=== PATIENT | female | born 1995 | race Caucasian/White ===

== ENCOUNTER 2017-02-08 09:58 | Emergency (ER) | payer MEDICAID ==
[~2017-02-08] VITALS: Ht 165.1 cm; Wt 125.0 kg
[~2017-02-08 09:58] MED LIST: ALLERGY10 M1 PO; AMOXICILLIN500 MG PO; AMOXICILLIN875 MG OR; AUGMENTIN875TAB PO; AURALGAN15 ML OT; BACTRIM DS1 TAB OR; BACTRIM DS1 TAB PO; BACTROBAN2 % EX; BENADRYL 50MG C50 MG OR; DARVOCET N-100100 - OR; DARVOCET-N 100100 MG OR; DIFLUCAN150 MG PO; ERRIN0.35 MG OR; ERRIN0.35 MG PO; FAMVIR500 MG OR; FIORICET PO; FLONASE NASAL50 MCG; FLUARIX QUADRIV1 INJ IM; GABAPENTIN300 MG PO; IBUPROFEN600 MG PO; KEFLEX500 MG PO; KENALOG15 GM/TUBE EX; LORTAB 10-325 M1 TAB PO; MEDDOSEPAK PO; MOTRIN800 MG OR; NAPROSYN375 MG PO; NAPROSYN500 MG OR; NAPROSYN500 MG PO; NAPROXEN500 MG PO; NO HOME MEDICATION; OBTREX DHA PO; OMNICEF300 MG PO; ONDANSETRON4 MG PO; PAROXETINE10 MG PO; PREDNISONE1 MG OR; PREDNISONE10 MG PO; PREDNISONE20 MG PO; PRENATA8; PRENATAL1 TA1 PO; PRILOSEC20 MG PO; PROAIR HFA IN; PROMETHAZINE12.5 MG OR; PROTONIX40 MG PO; PYRIDIUM200 MG PO; SINGULAIR10 MG OR; SMZ-TMP DS1 TAB PO; TAM75CAP OR; TETRACYCLINE250 MG OR; TOPAMAX50 MG PO; TRAMADOL HCL50 MG PO; TRAZODONE50 MG PO; TUMS500 MG PO; TYLENOL # 31 TAB OR; ULTRAM50 MG OR; VISTARIL25 MG OR; ZANTAC SYRUP15 MG/ML OR; ZOFRAN ODT4 MG PO; ZOVIRAX5 % EX; ZYRTEC10 MG PO
[2017-02-08 10:37] LABS: HEMATOCRIT 41.9 % (37.0-47.0); HEMOGLOBIN 14.1 g/dl (12.0-16.0); IMMATURE GRANULOCYTES 0.4 % (0.0-1.0); MEAN CELL VOLUME 87.8 fL CALC (80.0-100.0); MEAN CORPUSCULAR HGB 29.6 pG CALC (26.0-32.0); MEAN CORPUSCULAR HGB CONC 33.7 g/L CALC (32.0-36.0); NEUT# 4.97 thou/uL (2.00-7.15); RED BLOOD COUNT 4.77 mill/uL (4.20-5.60); RED CELL DISTRI WIDTH 14.8 % (11.5-15.5)
[2017-02-08 10:56] LABS: URINE BILIRUBIN - DIPSTICK NEGATIVE (NEGATIVE); URINE BLOOD DIPSTICK LARGE (NEGATIVE); URINE CLARITY SLIGHT CLOUDY; URINE COLOR YELLOW; URINE GLUCOSE - DIPSTICK NEGATIVE (NEGATIVE); URINE KETONE NEGATIVE (NEGATIVE); URINE LEUK ESTERASE TRACE (NEGATIVE); URINE NITRITE - DIPSTICK NEGATIVE (Negative); URINE PH 7.5 (4.5-8.0); URINE PROTEIN - DIPSTICK NEGATIVE (NEG-TRACE); URINE SPECIFIC GRAVITY 1.015; URINE UROBILINOGEN - DIPSTICK 0.2 E.U./dL (0.2)
[2017-02-08 10:56] LABS: ALBUMIN 4.4 g/dL (3.2-5.0); ALKALINE PHOSPHATASE 52 u/l (38-126); ANION GAP 15 (6-22 (CALC)); BILIRUBIN, TOTAL 0.4 mg/dL (0.0-1.4); BUN 6 mg/dL (7-17); BUN/CREATININE RATIO 9 (12-20 (CALC)); CALCIUM 9.8 mg/dL (8.4-10.2); CARBON DIOXIDE 24 mmol/l (22-30); CHLORIDE 104 mmol/l (95-108); CREATININE 0.7 mg/dL (0.5-1.0); GFR > 60 ML/MIN (>=60 (CALC)); GFR FOR AFR.AMER. > 60 ML/MIN (>=60 (CALC)); GLUCOSE 89 mg/dL (65-105); POTASSIUM 4.2 mmol/l (3.5-5.1); SGOT/AST 23 u/l (14-36); SGPT/ALT 37 u/l (9-52); SODIUM 139 mmol/l (137-146); TOTAL PROTEIN 7.5 g/dL (6.3-8.2)
[2017-02-08 11:09] LABS: URINE WBC 0-2 WBC/hpf (0-5)
[2017-02-08 11:10] LABS: URINE BACTERIA FEW hpf; URINE SQUAMOUS EPITHELIAL CELL MODERATE EPI/hpf (0-FEW)
[2017-02-08 11:12] LABS: BETA-HCG, QUANT(RESULT NUMBER) 1512 mIU/mL
[2017-02-08 12:54] VITALS: BP 82/51
[2017-02-09] MEDS ORDERED: RHOGAM ULTR1500 UNIT IN (22:36)
[2017-02-09] MEDS ORDERED: VISTARIL25 MG PO (22:36)
[2017-02-09] MEDS ORDERED: NORCO1 TA1 PO (22:36)
== END 2017-02-08 12:58 | disposition home or self-care (01) | DRG 779 ==
LOC: ED 09:58
PROVIDERS: Emergency Medicine
DX: O02.1 Missed abortion (principal)

== ENCOUNTER 2017-02-09 18:00 | Emergency (ER) | payer MEDICAID ==
[~2017-02-09] VITALS: Ht 165.1 cm; Wt 79.5 kg
[2017-02-09 21:21] LABS: HEMATOCRIT 42.7 % (37.0-47.0); HEMOGLOBIN 14.3 g/dl (12.0-16.0); IMMATURE GRANULOCYTES 0.4 % (0.0-1.0); MEAN CORPUSCULAR HGB 29.5 pG CALC (26.0-32.0); MEAN CORPUSCULAR HGB CONC 33.5 g/L CALC (32.0-36.0); NEUT# 6.09 thou/uL (2.00-7.15); RED BLOOD COUNT 4.85 mill/uL (4.20-5.60)
[2017-02-09] MEDS ORDERED: NORCO1 TA1 PO (22:36)
[2017-02-09] MEDS ORDERED: RHOGAM ULTR1500 UNIT IN (22:36)
[2017-02-09] MEDS ORDERED: VISTARIL25 MG PO (22:36)
[2017-02-10 01:00] VITALS: BP 86/46
== END 2017-02-09 23:50 | disposition home or self-care (01) | DRG 770 ==
LOC: ED 18:00
PROVIDERS: Emergency Medicine
PROC: 10D17ZZ Extraction of Products of Conception, Retained, Via Natural or Artificial Opening (ICD-10-PCS; principal; 2017-02-09)
DX: O03.4 Incomplete spontaneous abortion without complication (principal)

== ENCOUNTER 2017-04-14 15:57 | Emergency (ER) | payer MEDICAID ==
[~2017-04-14] VITALS: Ht 165.1 cm; Wt 135.0 kg
[~2017-04-14 15:57] MED LIST changes: +NORCO1 TA1 PO; +RHOGAM ULTR1500 UNIT IN; +VISTARIL25 MG PO
[2017-04-14 17:21] LABS: HEMOGLOBIN 13.8 g/dl (12.0-16.0); IMMATURE GRANULOCYTES 0.4 % (0.0-1.0); MEAN CORPUSCULAR HGB 29.3 pG CALC (26.0-32.0); MEAN CORPUSCULAR HGB CONC 33.7 g/L CALC (32.0-36.0); NEUT# 7.08 thou/uL (2.00-7.15); RED BLOOD COUNT 4.71 mill/uL (4.20-5.60); RED CELL DISTRI WIDTH 13.9 % (11.5-15.5)
[2017-04-14 17:22] LABS: URINE BLOOD DIPSTICK SMALL (NEGATIVE); URINE GLUCOSE - DIPSTICK 100 mg/dL (NEGATIVE); URINE KETONE TRACE mg/dL (NEGATIVE); URINE LEUK ESTERASE NEGATIVE (NEGATIVE); URINE PROTEIN - DIPSTICK 100 mg/dL (NEG-TRACE); URINE SPECIFIC GRAVITY >=1.030
[2017-04-14 17:28] LABS: URINE BILIRUBIN - DIPSTICK LARGE (NEGATIVE); URINE COLOR RED; URINE NITRITE - DIPSTICK POSITIVE (Negative)
[2017-04-14 17:29] LABS: URINE BACTERIA MODERATE hpf; URINE CLARITY CLOUDY; URINE SQUAMOUS EPITHELIAL CELL FEW EPI/hpf (0-FEW)
[2017-04-14 18:00] LABS: ALBUMIN 4.4 g/dL (3.2-5.0); ALKALINE PHOSPHATASE 189 u/l (38-126); ANION GAP 16 (6-22 (CALC)); BILIRUBIN, TOTAL 5.9 mg/dL (0.0-1.4); BUN 9 mg/dL (7-17); BUN/CREATININE RATIO 12 (12-20 (CALC)); CALCIUM 9.2 mg/dL (8.4-10.2); CARBON DIOXIDE 23 mmol/l (22-30); CHLORIDE 106 mmol/l (95-108); CREATININE 0.8 mg/dL (0.5-1.0); GFR > 60 ML/MIN (>=60 (CALC)); GFR FOR AFR.AMER. > 60 ML/MIN (>=60 (CALC)); GLUCOSE 105 mg/dL (65-105); POTASSIUM 4.4 mmol/l (3.5-5.1); SGOT/AST 398 u/l (14-36); SGPT/ALT 502 u/l (9-52); SODIUM 141 mmol/l (137-146); TOTAL PROTEIN 7.6 g/dL (6.3-8.2)
[2017-04-14 19:32] LABS: AMYLASE 3311 u/l (30-110)
[2017-04-14 19:47] LABS: LIPASE 22625 u/l (23-300)
[2017-04-15 01:45] VITALS: BP 102/51
== END 2017-04-15 01:45 | DRG 444 ==
LOC: ED 15:57
PROVIDERS: Emergency Medicine
DX: K80.10 Calculus of gallbladder with chronic cholecystitis without obstruction (principal); K85.90 Acute pancreatitis without necrosis or infection, unspecified; R10.13 Epigastric pain; R10.11 Right upper quadrant pain
CPT/HCPCS: S0164

== ENCOUNTER 2017-07-22 13:04 | Emergency (ER) | payer MEDICAID ==
[~2017-07-22] VITALS: Ht 165.1 cm; Wt 125.0 kg
[2017-07-22 13:49] LABS: URINE BILIRUBIN - DIPSTICK NEGATIVE (NEGATIVE); URINE BLOOD DIPSTICK NEGATIVE (NEGATIVE); URINE CLARITY CLEAR; URINE COLOR YELLOW; URINE GLUCOSE - DIPSTICK NEGATIVE (NEGATIVE); URINE KETONE NEGATIVE (NEGATIVE); URINE LEUK ESTERASE NEGATIVE (NEGATIVE); URINE NITRITE - DIPSTICK NEGATIVE (Negative); URINE PROTEIN - DIPSTICK TRACE mg/dL (NEG-TRACE); URINE SPECIFIC GRAVITY 1.025; URINE UROBILINOGEN - DIPSTICK 0.2 E.U./dL (0.2)
[2017-07-22 13:57] LABS: HEMATOCRIT 40.6 % (37.0-47.0); HEMOGLOBIN 13.2 g/dl (12.0-16.0); IMMATURE GRANULOCYTES 0.8 % (0.0-1.0); MEAN CELL VOLUME 87.7 fL CALC (80.0-100.0); MEAN CORPUSCULAR HGB 28.5 pG CALC (26.0-32.0); MEAN CORPUSCULAR HGB CONC 32.5 g/L CALC (32.0-36.0); NEUT# 4.26 thou/uL (2.00-7.15); RED BLOOD COUNT 4.63 mill/uL (4.20-5.60); RED CELL DISTRI WIDTH 14.9 % (11.5-15.5)
[2017-07-22 14:01] LABS: ALBUMIN 4.5 g/dL (3.2-5.0); ALKALINE PHOSPHATASE 57 u/l (38-126); AMYLASE 70 u/l (30-110); ANION GAP 16 (6-22 (CALC)); BILIRUBIN, TOTAL 0.5 mg/dL (0.0-1.4); BUN 10 mg/dL (7-17); BUN/CREATININE RATIO 12 (12-20 (CALC)); CALCIUM 9.4 mg/dL (8.4-10.2); CARBON DIOXIDE 27 mmol/l (22-30); CHLORIDE 105 mmol/l (95-108); CREATININE 0.9 mg/dL (0.5-1.0); GFR > 60 ML/MIN (>=60 (CALC)); GFR FOR AFR.AMER. > 60 ML/MIN (>=60 (CALC)); GLUCOSE 81 mg/dL (65-105); LIPASE 55 u/l (23-300); POTASSIUM 4.4 mmol/l (3.5-5.1); SGOT/AST 17 u/l (14-36); SGPT/ALT 31 u/l (9-52); SODIUM 142 mmol/l (137-146); TOTAL PROTEIN 8.2 g/dL (6.3-8.2)
[2017-07-22] MEDS ORDERED: ULTRAM50 M1 PO (15:51)
[2017-07-22 16:26] VITALS: BP 100/56
== END 2017-07-22 16:00 | disposition home or self-care (01) | DRG 392 ==
LOC: ED 13:04
PROVIDERS: Emergency Medicine
DX: R10.11 Right upper quadrant pain (principal)
CPT/HCPCS: Q9967

== ENCOUNTER 2018-10-26 17:40 | Emergency (ER) | payer SELFPAY ==
[~2018-10-26] VITALS: Ht 165.1 cm; Wt 133.2 kg
[~2018-10-26 17:40] MED LIST changes: +ULTRAM50 M1 PO
[2018-10-26 19:04] VITALS: BP 122/73
== END 2018-10-26 19:04 | disposition home or self-care (01) | DRG 153 ==
LOC: ED 17:40
DX: J06.9 Acute upper respiratory infection, unspecified (principal)

== ENCOUNTER 2019-03-30 13:02 | Emergency (ER) | payer OTHER ==
[~2019-03-30] VITALS: Ht 165.1 cm; Wt 127.0 kg
[2019-03-30] MEDS ORDERED: MOTRIN400 MG PO (13:57)
[2019-03-30 14:00] VITALS: BP 138/88
== END 2019-03-30 14:00 | disposition home or self-care (01) ==
LOC: ED 13:02
DX: S93.402A Sprain of unspecified ligament of left ankle, initial encounter (principal); W10.9XXA Fall (on) (from) unspecified stairs and steps, initial encounter; Y92.009 Unspecified place in unspecified non-institutional (private) residence as the place of occurrence of the external cause

== ENCOUNTER 2019-09-07 12:47 | Emergency (ER) | payer OTHER ==
[~2019-09-07] VITALS: Ht 165.1 cm; Wt 109.0 kg
[~2019-09-07 12:47] MED LIST changes: +MOTRIN400 MG PO
[2019-09-07] MEDS ORDERED: DICLOFENAC50 MG PO (14:09)
[2019-09-07] MEDS ORDERED: FLEXERIL PO (14:09)
[2019-09-07 14:15] VITALS: BP 108/66
== END 2019-09-07 14:15 | disposition home or self-care (01) ==
LOC: ED 12:47
DX: M54.5 Low back pain (principal); G89.29 Other chronic pain

== ENCOUNTER 2019-11-12 | Emergency (ER) | payer OTHER ==
[~2019-11-12] MED LIST changes: +DICLOFENAC50 MG PO; +FLEXERIL PO
[2019-11-12 16:05] LABS: HEMATOCRIT 43.1 % (37.0-47.0); HEMOGLOBIN 13.1 g/dl (12.0-16.0); IMMATURE GRANULOCYTES 0.2 % (0.0-5.0); MEAN CELL VOLUME 80.3 fL CALC (80.0-100.0); MEAN CORPUSCULAR HGB 24.4 pG CALC (26.0-32.0); MEAN CORPUSCULAR HGB CONC 30.4 g/L CALC (32.0-36.0); NEUT# 3.46 thou/uL (2.00-7.15); RED BLOOD COUNT 5.37 mill/uL (4.20-5.60); RED CELL DISTRI WIDTH 16.6 % (11.5-15.5)
[2019-11-12 16:25] LABS: URINE BLOOD DIPSTICK LARGE (NEGATIVE); URINE GLUCOSE - DIPSTICK NEGATIVE (NEGATIVE); URINE KETONE NEGATIVE (NEGATIVE); URINE LEUK ESTERASE NEGATIVE (NEGATIVE); URINE NITRITE - DIPSTICK NEGATIVE (Negative); URINE PH 5.5 (4.5-8.0); URINE PROTEIN - DIPSTICK 30 mg/dL (NEG-TRACE); URINE SPECIFIC GRAVITY >=1.030
[2019-11-12 16:26] LABS: ALBUMIN 4.8 g/dL (3.2-5.0); ALKALINE PHOSPHATASE 75 u/l (38-126); ANION GAP 16 (6-22 (CALC)); BILIRUBIN, TOTAL 0.5 mg/dL (0.0-1.4); BUN 8 mg/dL (7-17); BUN/CREATININE RATIO 10 (12-20 (CALC)); CARBON DIOXIDE 22 mmol/l (22-30); CHLORIDE 104 mmol/l (95-108); CREATININE 0.8 mg/dL (0.5-1.0); GFR > 60 ML/MIN (>=60 (CALC)); GFR FOR AFR.AMER. > 60 ML/MIN (>=60 (CALC)); LIPASE 67 u/l (23-300); POTASSIUM 3.8 mmol/l (3.5-5.1); SGOT/AST 24 u/l (14-36); SODIUM 139 mmol/l (137-146); TOTAL PROTEIN 8.5 g/dL (6.3-8.2); URINE BILIRUBIN - DIPSTICK NEGATIVE (NEGATIVE); URINE COLOR DK. YELLOW
[2019-11-12 16:38] LABS: URINE SQUAMOUS EPITHELIAL CELL MODERATE EPI/hpf (0-FEW)
[2019-11-12] MEDS ORDERED: ZOFRAN4 MG/TAB PO (19:06)
[2019-11-12] MEDS ORDERED: DICYCLOMINE10 MG PO (19:06)
== END 2019-11-12 19:35 | disposition home or self-care (01) ==
PROVIDERS: Family Medicine
DX: K52.9 Noninfective gastroenteritis and colitis, unspecified (principal); F17.210 Nicotine dependence, cigarettes, uncomplicated
CPT/HCPCS: Q9967

== ENCOUNTER 2020-03-15 18:51 | Emergency (ER) | payer OTHER ==
[~2020-03-15 18:51] MED LIST changes: +DICYCLOMINE10 MG PO; +ZOFRAN4 MG/TAB PO
[2020-03-15] MEDS ORDERED: KEFLEX500 M1 PO ×2 (20:52)
[2020-03-15 21:15] VITALS: BP 152/70
== END 2020-03-15 21:15 | disposition home or self-care (01) ==
LOC: ED 18:51
DX: L03.032 Cellulitis of left toe (principal); F17.200 Nicotine dependence, unspecified, uncomplicated

== ENCOUNTER 2020-09-01 08:14 | Emergency (ER) | payer OTHER ==
[~2020-09-01] VITALS: Ht 165.1 cm; Wt 120.0 kg
[~2020-09-01 08:14] MED LIST changes: +KEFLEX500 M1 PO
[2020-09-01 09:03] LABS: HEMATOCRIT 42.3 % (37.0-47.0); HEMOGLOBIN 13.1 g/dl (12.0-16.0); IMMATURE GRANULOCYTES 0.3 % (0.0-5.0); MEAN CORPUSCULAR HGB 25.4 pG CALC (26.0-32.0); NEUT# 2.57 thou/uL (2.00-7.15); RED BLOOD COUNT 5.16 mill/uL (4.20-5.60); RED CELL DISTRI WIDTH 16.2 % (11.5-15.5)
[2020-09-01 09:17] LABS: ANION GAP 12 (6-22 (CALC)); BUN 7 mg/dL (7-17); BUN/CREATININE RATIO 8 (12-20 (CALC)); CARBON DIOXIDE 25 mmol/l (22-30); CHLORIDE 108 mmol/l (95-108); CREATININE 0.8 mg/dL (0.5-1.0); GFR > 60 ML/MIN (>=60 (CALC)); GFR FOR AFR.AMER. > 60 ML/MIN (>=60 (CALC)); POTASSIUM 3.6 mmol/l (3.5-5.1); SODIUM 140 mmol/l (137-146)
[2020-09-01] MEDS ORDERED: HYDROCO/APAP1 TA9 PO (10:45)
[2020-09-01 10:54] VITALS: BP 109/67
== END 2020-09-01 10:54 | disposition home or self-care (01) ==
LOC: ED 08:14
PROVIDERS: Family Medicine
DX: M79.601 Pain in right arm (principal); D69.2 Other nonthrombocytopenic purpura; I77.6 Arteritis, unspecified; F17.200 Nicotine dependence, unspecified, uncomplicated

== ENCOUNTER 2020-09-04 08:04 | Emergency (ER) | payer OTHER ==
[~2020-09-04] VITALS: Ht 165.1 cm; Wt 120.0 kg
[~2020-09-04 08:04] MED LIST changes: +HYDROCO/APAP1 TA9 PO
[2020-09-04] MEDS ORDERED: LORTAB 1010 MG PO (08:23)
[2020-09-04] MEDS ORDERED: FAMCICLOVIR500 MG PO (08:23)
[2020-09-04] MEDS ORDERED: ZOVIRAX52 TOP (08:23)
[2020-09-04 08:40] VITALS: BP 105/58
== END 2020-09-04 08:40 | disposition home or self-care (01) ==
LOC: ED 08:04
DX: B02.9 Zoster without complications (principal); F17.200 Nicotine dependence, unspecified, uncomplicated

== ENCOUNTER 2021-05-04 21:20 | Emergency (ER) | payer OTHER ==
[~2021-05-04] VITALS: Ht 165.1 cm; Wt 122.3 kg
[~2021-05-04 21:20] MED LIST changes: +FAMCICLOVIR500 MG PO; +LORTAB 1010 MG PO; +ZOVIRAX52 TOP
[2021-05-04 22:23] LABS: HEMATOCRIT 43.2 % (37.0-47.0); HEMOGLOBIN 13.9 g/dl (12.0-16.0); IMMATURE GRANULOCYTES 0.4 % (0.0-5.0); MEAN CELL VOLUME 86.1 fL CALC (80.0-100.0); MEAN CORPUSCULAR HGB 27.7 pG CALC (26.0-32.0); MEAN CORPUSCULAR HGB CONC 32.2 g/dL CAL (32.0-36.0); NEUT# 3.57 thou/uL (2.00-7.15); RED BLOOD COUNT 5.02 mill/uL (4.20-5.60)
[2021-05-04 22:24] LABS: URINE BILIRUBIN - DIPSTICK NEGATIVE (NEGATIVE); URINE BLOOD DIPSTICK NEGATIVE (NEGATIVE); URINE COLOR YELLOW; URINE GLUCOSE - DIPSTICK NEGATIVE (NEGATIVE); URINE KETONE NEGATIVE (NEGATIVE); URINE LEUK ESTERASE NEGATIVE (NEGATIVE); URINE PH 6.5 (4.5-8.0); URINE PROTEIN - DIPSTICK NEGATIVE (NEG-TRACE); URINE SPECIFIC GRAVITY >=1.030; URINE UROBILINOGEN - DIPSTICK 0.2 E.U./dL (0.2)
[2021-05-04 22:25] LABS: URINE NITRITE - DIPSTICK NEGATIVE (Negative)
[2021-05-04 22:40] LABS: ALBUMIN 4.3 g/dL (3.2-5.0); ALKALINE PHOSPHATASE 57 u/l (38-126); AMYLASE 80 u/l (30-110); ANION GAP 12 (6-22 (CALC)); BILIRUBIN, TOTAL 0.3 mg/dL (0.0-1.4); BUN 11 mg/dL (7-17); BUN/CREATININE RATIO 13 (12-20 (CALC)); CARBON DIOXIDE 23 mmol/l (22-30); CHLORIDE 106 mmol/l (95-108); CREATININE 0.8 mg/dL (0.5-1.0); GFR > 60 ML/MIN (>=60 (CALC)); GFR FOR AFR.AMER. > 60 ML/MIN (>=60 (CALC)); LIPASE 122 u/l (23-300); SGOT/AST 21 u/l (14-36); SODIUM 137 mmol/l (137-146); TOTAL PROTEIN 7.7 g/dL (6.3-8.2)
[2021-05-04] MEDS ORDERED: GABAPENTIN100 MG PO (22:50)
[2021-05-04] MEDS ORDERED: LORTAB 1010 MG PO (23:50)
[2021-05-05 00:15] VITALS: BP 109/53
== END 2021-05-05 00:02 | disposition home or self-care (01) ==
LOC: ED 21:20
PROVIDERS: Emergency Medicine
DX: R10.30 Lower abdominal pain, unspecified (principal); N80.9 Endometriosis, unspecified; F17.200 Nicotine dependence, unspecified, uncomplicated
CPT/HCPCS: Q9967

== ENCOUNTER 2021-06-25 23:02 | Emergency (ER) | payer OTHER ==
[~2021-06-25] VITALS: Ht 165.1 cm; Wt 120.5 kg
[~2021-06-25 23:02] MED LIST changes: +GABAPENTIN100 MG PO
[2021-06-25 23:45] LABS: HEMOGLOBIN 14.3 g/dl (12.0-16.0); IMMATURE GRANULOCYTES 0.2 % (0.0-5.0); MEAN CELL VOLUME 87.1 fL CALC (80.0-100.0); MEAN CORPUSCULAR HGB 28.3 pG CALC (26.0-32.0); MEAN CORPUSCULAR HGB CONC 32.5 g/dL CAL (32.0-36.0); NEUT# 5.57 thou/uL (2.00-7.15); RED BLOOD COUNT 5.05 mill/uL (4.20-5.60)
[2021-06-26 00:16] LABS: ALBUMIN 4.4 g/dL (3.2-5.0); ALKALINE PHOSPHATASE 52 u/l (38-126); ANION GAP 13 (6-22 (CALC)); BILIRUBIN, TOTAL 0.3 mg/dL (0.0-1.4); BUN 9 mg/dL (7-17); BUN/CREATININE RATIO 11 (12-20 (CALC)); CARBON DIOXIDE 23 mmol/l (22-30); CHLORIDE 108 mmol/l (95-108); CREATININE 0.8 mg/dL (0.5-1.0); GFR > 60 ML/MIN (>=60 (CALC)); GFR FOR AFR.AMER. > 60 ML/MIN (>=60 (CALC)); POTASSIUM 3.6 mmol/l (3.5-5.1); SGOT/AST 20 u/l (14-36); SODIUM 140 mmol/l (137-146); TOTAL PROTEIN 7.6 g/dL (6.3-8.2)
[2021-06-26 01:36] LABS: URINE BILIRUBIN - DIPSTICK NEGATIVE (NEGATIVE); URINE BLOOD DIPSTICK NEGATIVE (NEGATIVE); URINE COLOR YELLOW; URINE GLUCOSE - DIPSTICK NEGATIVE (NEGATIVE); URINE KETONE NEGATIVE (NEGATIVE); URINE LEUK ESTERASE TRACE (NEGATIVE); URINE PROTEIN - DIPSTICK NEGATIVE (NEG-TRACE); URINE SPECIFIC GRAVITY 1.015; URINE UROBILINOGEN - DIPSTICK 0.2 E.U./dL (0.2)
[2021-06-26 01:38] LABS: URINE NITRITE - DIPSTICK NEGATIVE (Negative)
[2021-06-26] MEDS ORDERED: GABAPENTIN300 M2 PO (01:56)
[2021-06-26] MEDS ORDERED: LORTAB 5/3255 MG PO (01:56)
[2021-06-26] MEDS ORDERED: AMOX/K CLAV875 M1 PO (01:56)
[2021-06-26 02:00] VITALS: BP 110/59
== END 2021-06-26 02:05 | disposition home or self-care (01) ==
LOC: ED 23:02
PROVIDERS: Family Medicine
DX: G50.0 Trigeminal neuralgia (principal); J32.9 Chronic sinusitis, unspecified; K03.81 Cracked tooth; F17.200 Nicotine dependence, unspecified, uncomplicated

== ENCOUNTER 2021-07-08 08:31 | Emergency (ER) | payer OTHER ==
[~2021-07-08] VITALS: Ht 165.1 cm; Wt 120.0 kg
[~2021-07-08 08:31] MED LIST changes: +AMOX/K CLAV875 M1 PO; +GABAPENTIN300 M2 PO; +LORTAB 5/3255 MG PO
[2021-07-08] MEDS ORDERED: TRILEPTAL300 MG PO (08:57)
[2021-07-08] MEDS ORDERED: TEGRETOL PO (10:34)
[2021-07-08] MEDS ORDERED: HYDROCO/APAP1 TA9 PO (10:34)
[2021-07-08 11:09] VITALS: BP 142/75
== END 2021-07-08 11:17 | disposition home or self-care (01) ==
LOC: ED 08:31
DX: G50.0 Trigeminal neuralgia (principal); E66.9 Obesity, unspecified; F17.210 Nicotine dependence, cigarettes, uncomplicated

== ENCOUNTER 2022-02-18 15:18 | Emergency (ER) | payer OTHER ==
[2022-02-18] VITALS (25 sets, daily range): BP systolic 74–127; BP diastolic 42–82
[~2022-02-18] VITALS: Ht 165.1 cm; Wt 117.7 kg
[~2022-02-18 15:18] MED LIST changes: +KEPPRA500 M2 PO; +TEGRETOL PO; +TRILEPTAL300 MG PO
[2022-02-18 15:44] LABS: HEMATOCRIT 48.7 % (37.0-47.0); HEMOGLOBIN 16.2 g/dl (12.0-16.0); IMMATURE GRANULOCYTES 0.3 % (0.0-5.0); MEAN CELL VOLUME 89.2 fL CALC (80.0-100.0); MEAN CORPUSCULAR HGB 29.7 pG CALC (26.0-32.0); MEAN CORPUSCULAR HGB CONC 33.3 g/dL CAL (32.0-36.0); NEUT# 9.01 thou/uL (2.00-7.15); RED BLOOD COUNT 5.46 mill/uL (4.20-5.60)
[2022-02-18 16:02] LABS: ALBUMIN 4.4 g/dL (3.2-5.0); ALKALINE PHOSPHATASE 91 u/l (38-126); ANION GAP 11 (6-22 (CALC)); BILIRUBIN, TOTAL 0.9 mg/dL (0.0-1.4); BUN 10 mg/dL (7-17); BUN/CREATININE RATIO 14 (12-20 (CALC)); CARBON DIOXIDE 21 mmol/l (22-30); CHLORIDE 107 mmol/l (95-108); CREATININE 0.8 mg/dL (0.5-1.0); GFR > 60 ML/MIN (>=60 (CALC)); GFR FOR AFR.AMER. > 60 ML/MIN (>=60 (CALC)); SGOT/AST 67 u/l (14-36); SODIUM 135 mmol/l (137-146); TOTAL PROTEIN 7.8 g/dL (6.3-8.2)
[2022-02-18] MEDS ORDERED: PROMETHAZINE HY25 M1 PO (19:43)
== END 2022-02-18 20:08 | disposition home or self-care (01) ==
LOC: ED 15:18
PROVIDERS: Family Medicine
DX: R07.9 Chest pain, unspecified (principal); R11.0 Nausea; F17.210 Nicotine dependence, cigarettes, uncomplicated

== ENCOUNTER 2022-04-06 09:48 | Emergency (ER) | payer OTHER ==
[~2022-04-06] VITALS: Ht 165.1 cm; Wt 119.7 kg
[2022-04-06] VITALS (15 sets, daily range): BP systolic 80–114; BP diastolic 37–83
[~2022-04-06 09:48] MED LIST changes: +PROMETHAZINE HY25 M1 PO
[2022-04-06 10:36] LABS: HEMATOCRIT 51.2 % (37.0-47.0); HEMOGLOBIN 16.7 g/dl (12.0-16.0); IMMATURE GRANULOCYTES 0.1 % (0.0-5.0); MEAN CELL VOLUME 91.6 fL CALC (80.0-100.0); MEAN CORPUSCULAR HGB 29.9 pG CALC (26.0-32.0); MEAN CORPUSCULAR HGB CONC 32.6 g/dL CAL (32.0-36.0); NEUT# 3.52 thou/uL (2.00-7.15); RED BLOOD COUNT 5.59 mill/uL (4.20-5.60); RED CELL DISTRI WIDTH 14.2 % (11.5-15.5)
[2022-04-06 11:00] LABS: ALBUMIN 4.8 g/dL (3.2-5.0); ALKALINE PHOSPHATASE 72 u/l (38-126); BUN 8 mg/dL (7-17); BUN/CREATININE RATIO 9 (12-20 (CALC)); CHLORIDE 105 mmol/l (95-108); CREATININE 0.9 mg/dL (0.5-1.0); GFR FOR AFR.AMER. > 60 ML/MIN (>=60 (CALC)); GFR OTHER RACES > 60 ML/MIN (>=60 (CALC)); POTASSIUM 3.9 mmol/l (3.5-5.1); SGOT/AST 26 u/l (14-36); SODIUM 141 mmol/l (137-146); TOTAL PROTEIN 8.7 g/dL (6.3-8.2)
[2022-04-06 11:03] LABS: ANION GAP 13 (6-22 (CALC)); BILIRUBIN, TOTAL 0.4 mg/dL (0.0-1.4); CARBON DIOXIDE 27 mmol/l (22-30)
[2022-04-06] MEDS ORDERED: ZITHROMAX250 MG PO (13:06)
[2022-04-06] MEDS ORDERED: PAXLOVID PO (13:06)
== END 2022-04-06 13:46 | disposition home or self-care (01) ==
LOC: ED 09:48
PROVIDERS: Emergency Medicine
DX: U07.1 COVID-19 (principal); R05.9 Cough, unspecified; R09.81 Nasal congestion; G50.0 Trigeminal neuralgia; F17.210 Nicotine dependence, cigarettes, uncomplicated
CPT/HCPCS: Q9967

== ENCOUNTER 2022-06-07 11:46 | Emergency (ER) | payer OTHER ==
[2022-06-07] VITALS (21 sets, daily range): BP systolic 86–115; BP diastolic 53–81
[~2022-06-07] VITALS: Ht 165.1 cm; Wt 86.0 kg
[~2022-06-07 11:46] MED LIST changes: +PAXLOVID PO; +ZITHROMAX250 MG PO
[2022-06-07 13:28] LABS: URINE BILIRUBIN - DIPSTICK NEGATIVE (NEGATIVE); URINE BLOOD DIPSTICK NEGATIVE (NEGATIVE); URINE COLOR YELLOW; URINE GLUCOSE - DIPSTICK NEGATIVE (NEGATIVE); URINE KETONE NEGATIVE (NEGATIVE); URINE LEUK ESTERASE NEGATIVE (NEGATIVE); URINE PROTEIN - DIPSTICK NEGATIVE (NEG-TRACE); URINE SPECIFIC GRAVITY 1.015; URINE UROBILINOGEN - DIPSTICK 0.2 E.U./dL (0.2)
[2022-06-07 13:29] LABS: HEMATOCRIT 46.9 % (37.0-47.0); HEMOGLOBIN 15.9 g/dl (12.0-16.0); IMMATURE GRANULOCYTES 0.2 % (0.0-5.0); MEAN CELL VOLUME 87.8 fL CALC (80.0-100.0); MEAN CORPUSCULAR HGB 29.8 pG CALC (26.0-32.0); MEAN CORPUSCULAR HGB CONC 33.9 g/dL CAL (32.0-36.0); NEUT# 4.37 thou/uL (2.00-7.15); RED BLOOD COUNT 5.34 mill/uL (4.20-5.60); RED CELL DISTRI WIDTH 13.5 % (11.5-15.5)
[2022-06-07 13:29] LABS: URINE NITRITE - DIPSTICK NEGATIVE (Negative)
[2022-06-07 13:51] LABS: ALBUMIN 4.4 g/dL (3.2-5.0); ALKALINE PHOSPHATASE 58 u/l (38-126); ANION GAP 13 (6-22 (CALC)); BILIRUBIN, TOTAL 0.4 mg/dL (0.0-1.4); BUN 5 mg/dL (7-17); BUN/CREATININE RATIO 6 (12-20 (CALC)); CARBON DIOXIDE 24 mmol/l (22-30); CHLORIDE 106 mmol/l (95-108); CREATININE 0.9 mg/dL (0.5-1.0); GFR FOR AFR.AMER. > 60 ML/MIN (>=60 (CALC)); GFR OTHER RACES > 60 ML/MIN (>=60 (CALC)); LIPASE 46 u/l (23-300); POTASSIUM 4.3 mmol/l (3.5-5.1); SGOT/AST 19 u/l (14-36); SODIUM 139 mmol/l (137-146); TOTAL PROTEIN 7.4 g/dL (6.3-8.2)
== END 2022-06-07 18:53 | disposition home or self-care (01) ==
LOC: ED 11:46
PROVIDERS: Family Medicine
DX: E66.9 Obesity, unspecified (principal); F17.210 Nicotine dependence, cigarettes, uncomplicated; N83.292 Other ovarian cyst, left side; N83.291 Other ovarian cyst, right side
CPT/HCPCS: Q9967

== ENCOUNTER 2022-06-23 10:27 | Emergency (ER) | payer OTHER ==
[~2022-06-23] VITALS: Ht 165.1 cm; Wt 114.6 kg
[2022-06-23 11:11] VITALS: BP 116/76
[2022-06-23 11:27] LABS: HEMATOCRIT 48.3 % (37.0-47.0); IMMATURE GRANULOCYTES 0.2 % (0.0-5.0); MEAN CELL VOLUME 89.1 fL CALC (80.0-100.0); MEAN CORPUSCULAR HGB 29.5 pG CALC (26.0-32.0); MEAN CORPUSCULAR HGB CONC 33.1 g/dL CAL (32.0-36.0); NEUT# 4.01 thou/uL (2.00-7.15); RED BLOOD COUNT 5.42 mill/uL (4.20-5.60); RED CELL DISTRI WIDTH 13.5 % (11.5-15.5)
[2022-06-23 11:31] VITALS: BP 95/69
[2022-06-23 11:31] LABS: URINE BILIRUBIN - DIPSTICK NEGATIVE (NEGATIVE); URINE COLOR YELLOW; URINE GLUCOSE - DIPSTICK NEGATIVE (NEGATIVE); URINE KETONE NEGATIVE (NEGATIVE); URINE LEUK ESTERASE NEGATIVE (NEGATIVE); URINE PH 6.5 (4.5-8.0); URINE PROTEIN - DIPSTICK NEGATIVE (NEG-TRACE); URINE SPECIFIC GRAVITY 1.015; URINE UROBILINOGEN - DIPSTICK 0.2 E.U./dL (0.2)
[2022-06-23 11:36] LABS: URINE BLOOD DIPSTICK NEGATIVE (NEGATIVE); URINE NITRITE - DIPSTICK NEGATIVE (Negative)
[2022-06-23] MEDS ORDERED: LORTAB 1010 MG PO (11:53)
[2022-06-23 12:00] VITALS: BP 105/68
[2022-06-23 12:00] LABS: ALBUMIN 4.8 g/dL (3.2-5.0); ALKALINE PHOSPHATASE 66 u/l (38-126); ANION GAP 15 (6-22 (CALC)); BILIRUBIN, TOTAL 0.5 mg/dL (0.0-1.4); BUN 7 mg/dL (7-17); BUN/CREATININE RATIO 7 (12-20 (CALC)); CARBON DIOXIDE 25 mmol/l (22-30); CHLORIDE 105 mmol/l (95-108); GFR FOR AFR.AMER. > 60 ML/MIN (>=60 (CALC)); GFR OTHER RACES > 60 ML/MIN (>=60 (CALC)); SGOT/AST 22 u/l (14-36); SODIUM 141 mmol/l (137-146); TOTAL PROTEIN 8.2 g/dL (6.3-8.2)
[2022-06-23 13:01] VITALS: BP 89/55
[2022-06-23] MEDS ORDERED: ULTRAM50 M1 PO (13:01)
[2022-06-23 13:04] VITALS: BP 95/58
== END 2022-06-23 13:13 | disposition home or self-care (01) ==
LOC: ED 10:27
PROVIDERS: Emergency Medicine
DX: N83.202 Unspecified ovarian cyst, left side (principal); G50.0 Trigeminal neuralgia; F17.210 Nicotine dependence, cigarettes, uncomplicated; Z20.822 Contact with and (suspected) exposure to COVID-19
CPT/HCPCS: Q9967

== ENCOUNTER 2023-07-11 07:16 | Emergency (ER) | payer SELFPAY ==
[2023-07-11] VITALS (12 sets, daily range): BP systolic 79–135; BP diastolic 41–81
[~2023-07-11] VITALS: Ht 165.1 cm; Wt 120.0 kg
[2023-07-11 07:57] LABS: BASO% 0.6 % (0-3); EOS% 11.7 % (0-8); HEMOGLOBIN 16.1 g/dl (12.0-16.0); IMMATURE GRANULOCYTES 0.5 % (0.0-5.0); LYMPH% 34.5 % (15-41); MEAN CELL VOLUME 91.4 fL CALC (80.0-100.0); MEAN CORPUSCULAR HGB 30.7 pG CALC (26.0-32.0); MEAN CORPUSCULAR HGB CONC 33.5 g/dL CAL (32.0-36.0); MONO% 6.1 % (2-13); NEUT# 4.03 thou/uL (2.00-7.15); NEUT% 46.6 % (42-76); RED BLOOD COUNT 5.25 mill/uL (4.20-5.60); RED CELL DISTRI WIDTH 13.4 % (11.5-15.5)
[2023-07-11 08:08] LABS: ANION GAP 11 (6-22 (CALC)); BUN 7 mg/dL (7-17); BUN/CREATININE RATIO 8 (12-20 (CALC)); CARBON DIOXIDE 22 mmol/l (22-30); CHLORIDE 106 mmol/l (95-108); CREATININE 0.9 mg/dL (0.5-1.0); GFR FOR AFR.AMER. > 60 ML/MIN (>=60 (CALC)); GFR OTHER RACES > 60 ML/MIN (>=60 (CALC)); POTASSIUM 3.9 mmol/l (3.5-5.1); SODIUM 136 mmol/l (137-146)
[2023-07-11] MEDS ORDERED: BENZONATATE200 MG PO (09:52)
[2023-07-11] MEDS ORDERED: PREDNISONE50 MG PO (09:52)
[2023-07-11] MEDS ORDERED: VENTOLIN HFA IN (09:52)
== END 2023-07-11 11:24 | disposition home or self-care (01) | DRG 203 ==
LOC: ED 07:16
PROVIDERS: Family Medicine
DX: J20.8 Acute bronchitis due to other specified organisms (principal); I77.6 Arteritis, unspecified; G50.0 Trigeminal neuralgia; F17.200 Nicotine dependence, unspecified, uncomplicated; Z20.822 Contact with and (suspected) exposure to COVID-19